=== PATIENT | female | born 1945 | race Caucasian/White ===

== ENCOUNTER 2019-08-04 08:35 | Inpatient (IN) ==
--- NOTE | 2019-06-22 16:32 | PAT Medication Instructions ---
Medication Instructions Date of Service June 22, 2019 Home Medications aspirin [Aspir-81] 81 mg PO DAILY atorvastatin 40 mg PO DAILY famotidine 40 mg PO UD PRN hydrocortisone 1 applic TOPICAL UD PRN lisinopril-hydrochlorothiazide 2 tab PO DAILY warfarin 5 mg PO 6XWK warfarin [Coumadin] 7.5 mg PO WK ASK your prescriber and surgeon warfarin 5 mg PO 6XWK warfarin [Coumadin] 7.5 mg PO WK STOP taking 24 hours before surgery hydrocortisone 1 applic TOPICAL UD PRN DO NOT take the morning of surgery famotidine 40 mg PO UD PRN lisinopril-hydrochlorothiazide 2 tab PO DAILY Take morning of surgery With a small sip of water, OTHERWISE NOTHING TO EAT OR DRINK AFTER MIDNIGHT: aspirin [Aspir-81] 81 mg PO DAILY atorvastatin 40 mg PO DAILY Other Notes If you have any questions please call us at [phone] or [phone] or [phone] or [phone]
--- NOTE | 2019-06-23 11:10 | Anesthesiology Consultation ---
Date of Service June 23, 2019 Assessment & Plan (1) Encounter for pre-operative examination: - Anxious: patient very anxious regarding upcoming surgery/anesthesia. Requesting general anesthesia if possible due to concerns with SAB/possible perioperative awareness. Discussed SAB vs. GA and advised patient that this will be discussed further AM DOS. Also of note, patient had ECHO 06/22/19 noting mild to moderate aortic stenosis (MG 16mmhg, KENA 1.1-1.2mmhg). - Possible difficult intubation due to anatomy* Chart Review Chart Review: Pending: Refer to Additional Notes / Consult section (pending preop testing (labs, CXR)) and Patient seen in Pre Admission Testing Teaching & Discussion Pre-Anesthesia Teaching/Discussion Notes: Instructed NPO after midnight before surgery,except medications with 15 cc of water. Medication instructions provided according to the PAT guidelines. History Surgery Operation Date: 08/04/19 11:25 Proposed Procedures p Left Total Knee Arthroplasty - Pete Polo MD Height/Weight Height: 5 ft 7 in Weight: 95.2 kg Allergies Allergy/AdvReac Type Severity Reaction Status Date / Time acetaminophen [From Percocet] AdvReac Unknown Nausea Verified 06/15/19 14:59 meperidine [From Demerol] AdvReac Unknown Nausea Verified 06/15/19 14:59 morphine AdvReac Unknown Nausea Verified 06/15/19 15:24 oxycodone [From Percocet] AdvReac Unknown Nausea Verified 06/15/19 14:59 Medications Home Medications Medication Instructions Recorded Confirmed Last Taken aspirin [Aspir-81] 81 mg PO DAILY 06/15/19 06/15/19 Unknown atorvastatin 40 mg PO DAILY 06/15/19 06/15/19 Unknown famotidine 40 mg PO UD PRN 06/15/19 06/15/19 Unknown hydrocortisone 1 applic TOPICAL UD PRN 06/15/19 06/15/19 Unknown lisinopril-hydrochlorothiazide 2 tab PO DAILY 06/15/19 06/15/19 Unknown warfarin 5 mg PO 6XWK 06/15/19 06/15/19 Unknown warfarin [Coumadin] 7.5 mg PO WK 06/15/19 06/15/19 Unknown Past Medical History Medical History Acid reflux controlled Anxiety prior to medical procedures* Aortic stenosis mild to moderate (MG 16mmhg, KENA 1.1-1.2mmhg per 06/22/19 ECHO) High blood pressure High cholesterol History of DVT (deep vein thrombosis) LE DVT (1997, 2010)- ? related to premarin for initial DVT/spontaneous recurrent DVT History of cellulitis occasional recurrence/no current issues- advised to contact surgeon/PCP if recurrence prior to surgery History of skin cancer s/p excision Obesity Osteoarthritis Exercise / Class Metabolic Activity III < 4 Walking/Shop/Light housework Past Family History Family History Mother Family history of diabetes mellitus Other Family history of cancer Past Surgical History Surgical History History of carpal tunnel surgery History of cholecystectomy History of colonoscopy History of hysterectomy Past Anesthesia History No Hx of Anesthesia Complications Daughter: post-operative disorientation, confusion, combative (improved with more recent procedures) History of PONV No Hx of PONV and No Hx of Motion Sickness Social History Smoking Status: Never smoker Do You Dip or Chew Tobacco: No Hx Alcohol Use: No Hx Substance Use: No substance use type: does not use Review of Systems Reflux controlled. Patient denies chest pain, shortness of breath, cough, wheezing, palpitations. Physical Exam Vital Signs VITALS BP 124/84 P 75 TEMP 98.0 SP02 95%RA RESP 16 PHYSICAL Full neck and c-spine range of motion. Full TMJ range of motion. TMD 2.5 finger breaths (difficult to palpate) Mallampati Score 4 (small oral opening) Dentition: upper/lower full dentures; edentulous Lungs: clear throughout to auscultation Cardiac: regular rate and rhythm, II/ systolic murmur Spine: normal Carotid arteries: negative bruit Extremities: no edema Testing Laboratory Results 06/07/19 WBC 6.95 H/H 13.1/40.8 PLATELETS 358 SODIUM 144 POTASSIUM 4.4 CHLORIDE 105 CO2 27 BUN 14 CREATININE 0.8 GLUCOSE 108 Electrocardiogram Date: 06/15/19 NSR at [address]. NS ST/TWA. No significant change compared to 12/09/1997 per cardiology. Echocardiogram Date: 06/22/19 EF 65-69% (qualitative). Mild cLVH. Mild senile calcific aortic stenosis with estimated MG 16mmhg, KENA 1.1-1.2mmgh. Grade I DD.
--- NOTE | 2019-06-23 12:11 | XRay Report ---
XR chest Pre-admission PA/Lat CLINICAL HISTORY: Preoperative chest COMPARISON STUDY: No previous studies for comparison. FINDINGS: The cardiac and mediastinal contours are normal. There is no evidence of focal pulmonary co nsolidation. There is no evidence of failure. No pleural effusions are visualized.[ IMPRESSION: No active disease in the chest. Electronically signed by: Laron Morel M.D. 06/23/2019 12:10 PM
[2019-06-23 12:52] LABS: Appearance Urine Clear (Clear); Bacteria Urine Automated Negative (Negative); Bilirubin Urine Negative (Negative); Blood Urine 1+ (Negative); Cast Urine Automated 0 /lpf (0-5); Color Urine Yellow; Glucose Urine UA Negative (Negative); Ketones Urine Negative (Negative); Leukocyte Esterase Urine Trace (Negative); Nitrite Urine Negative (Negative); Protein Urine Negative (Negative); Urobilinogen Urine Negative (Negative)
[2019-06-23 12:55] LABS: INR 2.1 (0.9-1.1); Partial Thromboplastin Ratio 1.1; Partial Thromboplastin Time 31.1 Seconds (21.0-31.0); Prothrombin Time 20.3 Seconds (9.0-12.0)
[2019-06-23 13:11] LABS: Estimated Average Glucose 137 mg/dl; Hemoglobin A1C 6.4 % (4.5-5.6)
--- NOTE | 2019-08-03 20:43 | History and Physical Report ---
DATE OF ADMISSION: 08/04/2019 CHIEF COMPLAINT: Chronic left knee pain and instability. HISTORY OF PRESENT ILLNESS: This is a 74-year-old female patient of Dr. Polo'hai complaining of chronic left knee pain, longstanding, now progressively getting worse. The patient has failed conservative treatment including intra-articular injections, narcotic medications, home exercise program and the use of a sleeve. The patient has increased pain with weightbearing activities and her pain does interfere with her activities of daily living. The patient has been diagnosed with end-stage osteoarthritis in her left knee per clinical and radiographic exams and she wishes to proceed with a left total knee arthroplasty. PAST MEDICAL HISTORY: Heart murmur, hypertension, hypercholesterolemia, history of DVT, acid reflux, obesity, and basal cell skin cancer. SOCIAL HISTORY: Nonsmoker, nondrinker. PAST SURGICAL HISTORY: Hysterectomy and cholecystectomy. FAMILY HISTORY: Noncontributory. REVIEW OF SYSTEMS: Chronic left knee pain and instability. Otherwise, denies any shortness of breath, chest pain, nausea, vomiting or any other joint complaints. MEDICATIONS: 1. Nasacort 55 mcg nasal spray once daily each nostril. 2. Optivar 0.05% eyedrops twice daily to affected eye. 3. Bacitracin 500 units per eye ointment as needed. 4. Lovastatin 40 mg daily. 5. Artificial tears 0.3% eyedrops as needed. 6. Coumadin 5 mg daily. 7. Famotidine 40 mg daily. ALLERGIES: INCLUDE PERCOCET, DEMEROL. PHYSICAL EXAMINATION: GENERAL: Well-developed, well-nourished 74-year-old female in no acute distress. She is alert and oriented x3 and pleasant. HEENT: Normocephalic, atraumatic. Extraocular motions are intact. Pupils are equal and reactive to light. HEART: Regular rate and rhythm, no murmurs. LUNGS: Clear. ABDOMEN: Soft, nontender, bowel sounds present. EXTREMITIES: Left knee reveals a limited range of motion of 0-100 with a neutral alignment. She has medial joint line tenderness, 5/5 strength, crepitation with passive range of motion. NEUROLOGIC: Neurovascularly, she is intact in her left lower extremity. DIAGNOSES: Left knee end-stage osteoarthritis, heart murmur, hypertension, hypercholesterolemia, history of deep venous thrombosis, acid reflux, obesity, history of basal cell skin cancer. PLAN: The patient was advised of her diagnosis. Indications, risks, benefits, postop course have all been reviewed. The patient wished to proceed with a left total knee arthroplasty. Necessary consent forms, preoperative testing and clearances will be obtained.
[~2019-08-04 08:35] MED LIST: ACETAMINOPHEN 500 MG TAB PO SCH; CEFAZOLIN 2000MG 2,000 MG/15 ML SYR IV SCH; CeleBREX 200 MG CAP PO SCH; FAMOTIDINE 20 MG TAB PO SCH; GABAPENTIN 300 MG CAP PO SCH; LR 500ML BOLUS, THEN 15ML/HR IV SCH; METOCLOPRAMIDE HCL 10 MG TABLET PO SCH; ROPIVACAINE 0.5% 5 MG/ML 30 ML VIAL ONE; ROPIVACAINE 0.5% HCL/PF 150 MG, BUPIVACAINE 0.5% MPF 30 ML, EPINEPHrine 30MG/30ML (OR U... INSTIL SCH; dexAMETHasone 4 MG TAB PO SCH
[2019-08-04 09:29] LABS: Partial Thromboplastin Ratio 0.9; Partial Thromboplastin Time 24.8 Seconds (21.0-31.0); Prothrombin Time 10.4 Seconds (9.0-12.0)
[2019-08-04] MEDS ORDERED: fentaNYL citrate 100 MCG/2 ML VIAL ONE (10:14)
[2019-08-04] MEDS ORDERED: PROPOFOL IV EMULSION 10 MG/ML 20 ML VIAL IV ONE ×3 (10:14→14:38)
[2019-08-04] MEDS ORDERED: LIDOCAINE HCL 2% 2 ML VIAL/AMP(20MG/ML) INFIL ONE (10:14)
[2019-08-04] MEDS ORDERED: MIDAZOLAM HCL 1 MG/ML 2ML VIAL ONE ×3 (10:14→11:13)
--- NOTE | 2019-08-04 11:00 | History & Physical Bridge Note ---
Date of Service August 04, 2019 History & Physical Bridge Note I have examined the patient, reviewed the History & Physical and in the interval since the performance of the History & Physical I have noted the following changes of clinical significance: no changes noted
[2019-08-04] MEDS ORDERED: ePHEDrine sulfate 50 MG/ML AMP IV PRN (11:07)
[2019-08-04] MEDS ORDERED: ATROPINE SULFATE 0.1 MG/ML 10ML SYR IV PRN (11:07)
[2019-08-04] MEDS ORDERED: BACITRACIN INJ 50,000 UNIT VIAL ONE (11:21)
[2019-08-04] MEDS ORDERED: ORTHO JOINT ANESTHETIC ONE (11:21)
[2019-08-04] MEDS ORDERED: BUPIVACAINE 0.5 % 5 MG/1 ML PF 10ML VIAL ONE (12:28)
[2019-08-04] MEDS ORDERED: ePHEDrine sulfate 50 MG/ML SYR ONE (13:20)
[2019-08-04] MEDS ORDERED: PHENYLEPHRINE 100MCG/ML 5ML SYR ONE (13:22)
--- NOTE | 2019-08-04 14:26 | Post Operative Brief Note ---
Immediate Post Op Note v1 Date of Surgery August 04, 2019 Pre & Post Diagnosis Operation Date: 08/04/19 11:10 Pre-Op Diagnosis: Left Knee End-State Osteoarthritis Post-Op Diagnosis: Left Knee End-State Osteoarthritis, complex medial meniscus tear I identified the patient and participated in the time-out.: Yes Procedure Operation Date: 08/04/19 11:10 Actual Procedures p Left Total Knee Arthroplasty(Left) - Pete Polo MD Surgeon Pete Polo MD Precision Honer MARIELOS Ervin Estimated Blood Loss 5 Findings Consistent with Post-Op Diagnosis Specimens Bone cuts Drains Hemovac Drain Anesthesia Type MAC Spinal Regional Complications none Disposition Accompanied Patient To Recovery: No Disposition: Recovery Room Overlapping Procedure I was present for: the critical portions of procedure. Back up surgeon: was not required during procedure.
--- NOTE | 2019-08-04 15:33 | Anesthesiology Progress Note ---
Date of Service August 04, 2019 Anesthesia Post Procedure Vital Signs Vital Signs: Temp Pulse Pulse Pulse Resp BP BP 08/04/19 15:30 36.4 C L 08/04/19 15:25 73 16 136/73 08/04/19 15:20 73 20 126/75 08/04/19 15:15 75 21 128/74 08/04/19 15:10 78 21 125/71 08/04/19 15:05 78 20 116/80 08/04/19 15:01 85 27 H 114/68 08/04/19 15:00 81 19 08/04/19 14:55 82 18 124/68 08/04/19 14:52 86 19 08/04/19 14:50 88 18 106/69 08/04/19 14:49 36.5 C 87 84 23 116/61 116/61 08/04/19 11:45 78 18 136/65 08/04/19 09:09 36.8 C 84 22 182/103 H Pulse Ox 08/04/19 15:30 98 08/04/19 15:25 97 08/04/19 15:20 98 08/04/19 15:15 97 08/04/19 15:10 98 08/04/19 15:05 95 08/04/19 15:01 96 08/04/19 15:00 96 08/04/19 14:55 97 08/04/19 14:52 93 08/04/19 14:50 94 08/04/19 14:49 93 08/04/19 11:45 93 08/04/19 09:09 99 Pain Intensity Left Knee: Pain Intensity: 0 Transfer of Care Handoff Completed per policy Notes Mental Status: alert / awake / arousable Patient Amnestic to Procedure: Yes Nausea / Vomiting: adequately controlled Pain: adequately controlled Airway Patency, RR, SpO2: stable & adequate BP & HR: stable & adequate Hydration State: stable & adequate Neuraxial Anesthesia: was administered and sensory block is resolving Anesthetic Complications: no major complications apparent and Pt Satisfied with anesthetic care
[2019-08-04] MEDS ORDERED: MAGNESIUM HYDROXIDE SUSP 30 ML UDC PO PRN (16:01)
[2019-08-04] MEDS ORDERED: bisacodyL 10 MG SUPP PR PRN (16:01)
[2019-08-04] MEDS ORDERED: HYDROmorphone INJ 0.5 MG/0.5 ML SYR IV PRN (16:01)
[2019-08-04] MEDS ORDERED: NALOXONE HCL 0.4 MG/1 ML VIAL/CARP IV PRN (16:01)
[2019-08-04] MEDS ORDERED: HYDROCORTISONE 1% CRM 30 GM TUBE EXT PRN (16:01)
[2019-08-04] MEDS ORDERED: ONDANSETRON INJ 2 MG/ML 2 ML VIAL IV PRN (16:01)
[2019-08-04] MEDS ORDERED: FAMOTIDINE 40 MG TABLET PO PRN (16:01)
[2019-08-04] MEDS ORDERED: TRAMADOL HCL 50 MG TABLET PO PRN (16:01)
[2019-08-04] MEDS ORDERED: OXYCODONE/ACETAMINOPHEN 5mg/325mg TAB PO PRN ×2 (16:18)
--- NOTE | 2019-08-04 16:30 | Operative Report ---
Post Operative Report Pre & Post Diagnosis Operation Date: 08/04/19 11:10 Pre-Op Diagnosis: Left Knee End-State Osteoarthritis Post-Op Diagnosis: Left Knee End-State Osteoarthritis I identified the patient and participated in the time-out.: Yes Procedure Operation Date: 08/04/19 11:10 Actual Procedures p Left Total Knee Arthroplasty(Left) - Pete Polo MD Surgeon Pete Polo MD Barrel Marker MARIELOS Ervin Estimated Blood Loss 5 Findings Consistent with Post-Op Diagnosis Specimens Bone cuts Drains 2 Hemovac Anesthesia Type MAC Spinal Regional Complications none Disposition Accompanied Patient To Recovery: No Disposition: Recovery Room Indications 74 female with significant bilateral knee pain left greater than right with end- stage medial compartment osteoarthritis both knees [id number] varus knees with some tricompartmental osteoarthritic findings. Description of Procedure Patient taken to the operating room placed supine on the operating table and anesthetized under spinal MAC regional anesthesia. Exam under anesthesia demonstrated range of motion -15 with flexion contracture and further flexion 120 degrees with knee effusion and no instability. A pneumatic tourniquet was placed about the thigh of the left lower extremity. The left lower extremity was prepped and draped in usual fashion. Leg was elevated exsanguinated with an Esmarch bandage and the pneumatic was raised to 325 mm mercury. An anterior incision was made across the left knee. The skin was incised longitudinally subcutaneous flaps were elevated and an incision was made through the medial retinaculum extending up into the mid third of the quadriceps tendon and extended down to the medial tibial tubercle. Intra-articular findings demonstrated tricompartment DJD opmo-dc-otip medial compartment complex meniscus tear. The knee was exposed by excising the infrapatellar fat pad, excising the meniscal remnants and cruciate ligaments or remnants of the ligaments. Any inflamed synovial tissue was resected. The fat pad over the anterior femur was resected for placement of the component in that area. The lateral synovial bands were release. Appropriate releases were performed to balance ligaments. The femur was exposed. The custom femoral cutting block was pinned in position. The distal femoral cutting block was applied. The distal femoral cut was made with the oscillating saw. The size 9 4-in-1 cutting block was placed. The anterior and posterior chamfer cuts were made. The knee was extended and a subperiosteal peel lateral release was performed around the patella. The patella width was measured and width was reproduced using freehand cut technique. The 32 x 8 symmetrical millimeter symmetrical patella was used. 3 drill holes are made for the pegs. The tibia was exposed. A custom tibial cutting block was positioned and drill holes were made for the cutting guide. Cutting guide was placed and the proximal cut was made with the oscillating saw. All osteophytes were resected. The lamina soft work wrapper examiner was used to assess ligamentous balance and the ligaments were balanced in extension and flexion. The tibia was reexposed and measured for a size E tibial component. This was externally rotated in line with the tibial tubercle and the fixation pins were drilled. The proximal tibia was fashioned with the drill and punch. The size 9 femoral trial was inserted. The trial MC inserts were used. The 12 mm insert gave balanced ligaments through full range of motion. The patella tracked with subtle liftoff so a limited lateral release was performed leaving the synovium intact and the patella tracked centrally. the trials were removed. The orthomix anesthetic cocktail was injected per protocol. The knee was then copiously irrigated with pulsatile lavage antibiotic solution with bacitracin. The final components were cemented with Simplex cement. The final components were left CR size 9 narrow Bryanna persona femoral component, E tibial component, medial congruent 12 mm polyethylene, 32 x 8.5 mm symmetrical patella. While the cement cured with the knee in full extension the Betadine soak was used per protocol. After the cement cured, the knee joint was copiously irrigated with antibiotic solution with bacitracin. 2 drains were brought out laterally and connected to a Hemovac. The quadriceps tendon and medial retinaculum were closed with interrupted [id number] #1 Vicryl sutures. The knee was taken through a full range of motion and repair was secure. The subcutaneous tissues were closed with 2-0 Vicryl sutures and skin was closed with toshia. Sterile dressings were applied and the patient tolerated the procedure well. Garo ARCEO my physician anatomic pathology assistant, assisted in soft tissue retraction instrument management leg positioning the closure and will participate in the postoperative care of the patient. I attest to the content of the Intraoperative Record and any orders documented therein. Any exceptions are noted below.
--- NOTE | 2019-08-04 16:57 | Consultation ---
Date of Consultation August 04, 2019 Assessment & Plan (1) S/P total knee arthroplasty: Post op day# 0 S/P Left TKA by Dr Polo EBL# 5ml Post op doing well -pain management per ortho -wound management per ortho -PT/OT as appropriate -DVT prophylaxis per ortho -incentive spirometry -monitor H&H for acute blood loss anemia; pre-op Hgb: 13 (2) History of DVT (deep vein thrombosis): H/O DVT x 2. On Chronic Coumadin On Lovenox Bridge prior to surgery INR: 1.0 today -Coumadin to be resumed tonight per surgery -Monitor INR (3) HTN (hypertension): Stable -Continue lisinopril/HCTZ (4) Dyslipidemia: -Continue atorvastatin (5) Prediabetes: A1c: 6.4 on 06/23/19 Pt received Decadron perioperatively -Monitor BSGs -Novolog correction per protocol (6) GERD (gastroesophageal reflux disease): -Continue H2 justen (7) Nocturnal hypoxemia: H/O nocturnal hypoxia noted after cholecystectomy in 2011. Pt denies outpatient sleep study -Monitor O2 sats -Supplemental oxygen prn DVT Prophylaxis -SCDs, Coumadin to be resumed today Disposition per primary service Follows with Dr Contreras - [facility] for routine care Pt was seen and care coordinated with Dr Urbina. See addendum Pt will be followed by Dr Ross starting 08/05/19 Thank you for this consultation. We will follow the patient with you during their hospital stay. You can reach a member of the [facility] 16[facility]03 via pager @ . Supervising Physician Co-Signing Physician Notes Patient is a 74-year-old female with history of hypertension, dyslipidemia, and DVT on chronic anticoagulation and other problems was seen and examined postop after having left total knee arthroplasty by . Patient is doing well postop. She denies any significant pain at the site of incision. Also denies any chest pain, shortness of breath, dizziness, nausea. States having mild soreness of the abdomen from Lovenox shots. Offers no other complaints currently. On exam patient is moderately built and nourished, no apparent distress, normocephalic atraumatic, lungs are clear to auscultation, normal breath sounds, S1-S2,+ murmur, abdomen soft, ecchymosis, normal bowel sounds, grossly no focal neurologic deficits, left knee in surgical dressing, no significant pedal edema. Patient is consulted for postop medical management. Pain control, activity, wound care, DVT prophylaxis per primary team. Monitor for postop anemia. Continue bowel regimen to prevent constipation. Continue Coumadin, monitor INR. I personally reviewed the record. Patient is interviewed and examined at bedside. Patient's care is coordinated with Indiana Mancilla PA-C. Please refer to the documentation above for details of patient's presentation and for discussion of other issues. History of Present Illness Reason for Consultation: Post op medical management Attending Physician: Pete Polo MD History of Present Illness Pt is 74 y/o F with PMH HTN, dyslipidemia, H/O DVT x 2 on chronic Coumadin, mild aortic stenosis, GERD, obesity, h/o nocturnal hypoxemia after surgery in 2011 seen in post op medical consultation s/p L TKA today by Dr Polo. Post op pt reports doing well. Denies N/V. Still with numbness of lower extremities. Denies fever/chills, diaphoresis, HARRISON, dizziness, syncope, vision changes, neck pain, CP, SOB, orthopnea, palpitations, cough, sore throat, choking, otalgia, rhinorrhea, abdominal pain, extremity edema, rashes, urinary symptoms. H/O outpatient echo 05/2019: EF: 65-69%, mild aortic stenosis Allergies Allergy/AdvReac Type Severity Reaction Status Date / Time acetaminophen [From Percocet] AdvReac Unknown Nausea Verified 08/04/19 09:03 meperidine [From Demerol] AdvReac Unknown Nausea Verified 08/04/19 09:03 morphine AdvReac Unknown Nausea Verified 08/04/19 09:03 oxycodone [From Percocet] AdvReac Unknown Nausea Verified 08/04/19 09:03 Home Medications Home Medications Medication Instructions Recorded Confirmed Type aspirin [Aspir-81] 81 mg PO DAILY 06/15/19 08/04/19 History atorvastatin 40 mg PO DAILY 06/15/19 08/04/19 History famotidine 40 mg PO UD PRN 06/15/19 08/04/19 History hydrocortisone 1 applic TOPICAL UD PRN 06/15/19 08/04/19 History lisinopril-hydrochlorothiazide 2 tab PO DAILY 06/15/19 08/04/19 History warfarin 5 mg PO 6XWK 06/15/19 08/04/19 History warfarin [Coumadin] 7.5 mg PO WK 06/15/19 08/04/19 History enoxaparin [Lovenox] 100 mg SUBCUT BID 08/04/19 08/04/19 History Patient History Medical History (Updated 08/04/19 @ 17:02 by Indiana Mancilla PA-C) Anxiety prior to medical procedures* Aortic stenosis mild to moderate (MG 16mmhg, KENA 1.1-1.2mmhg per 06/22/19 ECHO) Dyslipidemia GERD (gastroesophageal reflux disease) History of cellulitis occasional recurrence/no current issues- advised to contact surgeon/PCP if recurrence prior to surgery History of DVT (deep vein thrombosis) LE DVT (1997, 2010)- ? related to premarin for initial DVT/spontaneous recurrent DVT History of skin cancer s/p excision HTN (hypertension) Nocturnal hypoxemia H/O nocturnal hypoxia noted after cholecystectomy in 2011. Obesity Osteoarthritis Prediabetes Surgical History (Updated 08/04/19 @ 17:02 by Indiana Mancilla PA-C) History of carpal tunnel surgery History of cholecystectomy History of colonoscopy History of hysterectomy Family History Mother Family history of diabetes mellitus Other Family history of cancer Social History Preferred Language: Greek Communication Ability: Effective Senior Net C Developer Required: No Beliefs That Will Affect Care: None Current Living Situation: Significant Other Other Information That Helps Us Care for You: No Feels Safe at Home: Yes Smoking Status: Never smoker Do You Dip or Chew Tobacco: No ; Hx Alcohol Use: No Hx Substance Use: No Review of Systems Review of Systems: All systems reviewed & are unremarkable except as noted in HPI & below Physical Exam Physical Exam: General: no distress, obese Head: normocephalic, atraumatic Eyes: conjunctiva non-injected, anicteric ENT: normal inspection external ears, nose, mucous membranes moist Neck: supple, trachea midline Lungs: clear, no respiratory distress, no wheezing/rhonchi/rales CV: RRR, +systolic murmur, no pretibial edema Abd: normal BS, +ecchymosis to bilateral abdomen (Recent lovenox injection sites), soft, non-tender Ext: no calf tenderness; Left knee and leg with JONH bandage in place, +drain in place with serosanguineous drainage, distal pulses palpable, sensation to light touch intact Neuro: A&O x 3, no focal deficits noted, normal affect Skin: warm, dry Results & Data Vital Signs (Past 12 Hours) Vital Signs Temp Pulse Pulse Pulse Resp BP BP 08/04/19 15:55 36.5 C 77 16 128/72 08/04/19 15:40 80 14 08/04/19 15:35 72 15 129/67 08/04/19 15:30 36.4 C L 74 18 123/76 08/04/19 15:25 73 16 136/73 08/04/19 15:20 73 20 126/75 08/04/19 15:15 75 21 128/74 08/04/19 15:10 78 21 125/71 08/04/19 15:05 78 20 116/80 08/04/19 15:01 85 27 H 114/68 08/04/19 15:00 81 19 08/04/19 14:55 82 18 124/68 08/04/19 14:52 86 19 08/04/19 14:50 88 18 106/69 08/04/19 14:49 36.5 C 87 84 23 116/61 116/61 08/04/19 11:45 78 18 136/65 08/04/19 09:09 36.8 C 84 22 182/103 H Pulse Ox 08/04/19 15:55 100 08/04/19 15:40 98 08/04/19 15:35 99 08/04/19 15:30 98 08/04/19 15:25 97 08/04/19 15:20 98 08/04/19 15:15 97 08/04/19 15:10 98 08/04/19 15:05 95 08/04/19 15:01 96 08/04/19 15:00 96 08/04/19 14:55 97 08/04/19 14:52 93 08/04/19 14:50 94 08/04/19 14:49 93 08/04/19 11:45 93 08/04/19 09:09 99
[2019-08-04] MEDS ORDERED: WARFARIN SOD 5 MG TAB PO SCH (17:00)
[2019-08-04] MEDS ORDERED: DEXTROSE 50% 50 ML SYRINGE IV PRN (17:11)
[2019-08-04] MEDS ORDERED: CARBOHYDRATES FOR HYPOGLYCEMIA PO PRN (17:11)
[2019-08-04] MEDS ORDERED: GLUCOSE 40% GEL 15 GM TUBE PO PRN (17:11)
[2019-08-04] MEDS ORDERED: GLUCOSE 10 TABS/TUBE PO PRN (17:11)
[2019-08-04] MEDS ORDERED: GLUCAGON FOR INJ 1 MG VIAL SQ PRN (17:11)
[2019-08-04] MEDS: SODIUM CHLORIDE 0.9% 1000ML 1,000 ML IV SCH (17:17)
[2019-08-04] MEDS ORDERED: WARFARIN SOD 10 MG TAB PO ONE (18:25)
--- NOTE | 2019-08-04 19:08 | XRay Report ---
LEFT KNEE 2 VIEWS History: Left total knee arthroplasty. Degenerative arthritis. Postop. FINDINGS: The patient is status post a left total knee arthroplasty. The hardware is intact. No fract ure or dislocation. Skin toshia and surgical drains are in place. IMPRESSION: Left total knee arthroplasty. No evidence for hardware complication. Electronically signed by: Jake Wiley M.D. 08/04/2019 7:06 PM
[2019-08-04] MEDS: CEFAZOLIN 2000MG 2,000 MG/15 ML SYR IV SCH (19:30)
[2019-08-04] MEDS: DOCUSATE SODIUM 100 MG CAP PO SCH ×2 (20:43→20:45)
[2019-08-04] MEDS: SENNA 8.6 MG TAB PO SCH ×2 (20:43→20:45)
[2019-08-04] MEDS: INSULIN ASPART 100 UNITS/ML 3 ML PEN SC SCH (20:48)
[2019-08-05] MEDS ORDERED: ACETAMINOPHEN 500 MG TAB PO PRN ×2 (02:07→18:43)
[2019-08-05] MEDS ORDERED: ACETAMINOPHEN 500 MG TAB ONE (02:13)
[2019-08-05] MEDS: SODIUM CHLORIDE 0.9% 1000ML 1,000 ML IV SCH (02:15)
[2019-08-05] MEDS: CEFAZOLIN 2000MG 2,000 MG/15 ML SYR IV SCH (04:52)
[2019-08-05 06:29] LABS: Hematocrit (blood only) 31.4 % (37-47); Hemoglobin 10.3 g/dL (12.0-16.0); Mean Corpuscular Hemoglobin 29.2 pg (25-34); Mean Corpuscular Hgb Conc 32.8 g/dL (32-36); Mean Platelet Volume 9.1 fL (7.4-10.4); Platelet Count 327 K/uL (130-400); RDW Coefficient of Variation 14.5 % (11.5-14.5); RDW Standard Deviation 47.3 fL (36.4-46.3); Red Blood Count 3.53 M/uL (4.2-5.4); White Blood Count 12.64 K/uL (4.8-10.8)
[2019-08-05 06:40] LABS: INR 1.1 (0.9-1.1); Prothrombin Time 10.9 Seconds (9.0-12.0)
[2019-08-05 07:02] LABS: BUN Creatinine Ratio 18.8 (10-20); Calcium 8.7 mg/dl (8.5-10.1); Creatinine Clr Calc Pharmacy 82.7 ml/min; Est GFR (Non-African American) 83.7; Potassium 3.5 mmol/L (3.5-5.1)
--- NOTE | 2019-08-05 07:58 | Anesthesiology Progress Note ---
Date of Service August 05, 2019 Anesthesia Post Procedure Vital Signs Vital Signs: Temp Pulse Pulse Pulse Resp BP BP 08/05/19 07:30 36.8 C 78 17 137/80 08/05/19 02:33 36.7 C 67 18 115/71 08/04/19 23:10 36.5 C 73 18 115/67 08/04/19 19:46 36.5 C 86 18 148/76 H 08/04/19 18:57 36.6 C 84 18 132/75 08/04/19 17:52 37.0 C 86 18 125/74 08/04/19 16:50 36.6 C 87 18 138/75 08/04/19 16:20 36.5 C 82 18 132/76 08/04/19 15:55 36.5 C 77 16 128/72 08/04/19 15:40 80 14 08/04/19 15:35 72 15 129/67 08/04/19 15:30 36.4 C L 74 18 123/76 08/04/19 15:25 73 16 136/73 08/04/19 15:20 73 20 126/75 08/04/19 15:15 75 21 128/74 08/04/19 15:10 78 21 125/71 08/04/19 15:05 78 20 116/80 08/04/19 15:01 85 27 H 114/68 08/04/19 15:00 81 19 08/04/19 14:55 82 18 124/68 08/04/19 14:52 86 19 08/04/19 14:50 88 18 106/69 08/04/19 14:49 36.5 C 87 84 23 116/61 116/61 08/04/19 11:45 78 18 136/65 08/04/19 09:09 36.8 C 84 22 182/103 H Pulse Ox 08/05/19 07:30 95 08/05/19 02:33 95 08/04/19 23:10 94 08/04/19 19:46 96 08/04/19 18:57 91 08/04/19 17:52 95 08/04/19 16:50 95 08/04/19 16:20 96 08/04/19 15:55 100 08/04/19 15:40 98 08/04/19 15:35 99 08/04/19 15:30 98 08/04/19 15:25 97 08/04/19 15:20 98 08/04/19 15:15 97 08/04/19 15:10 98 08/04/19 15:05 95 08/04/19 15:01 96 08/04/19 15:00 96 08/04/19 14:55 97 08/04/19 14:52 93 08/04/19 14:50 94 08/04/19 14:49 93 08/04/19 11:45 93 08/04/19 09:09 99 Pain Intensity Left Knee: Pain Intensity: 0 Notes Mental Status: alert / awake / arousable and participated in evaluation Patient Amnestic to Procedure: Yes Nausea / Vomiting: adequately controlled Pain: adequately controlled Airway Patency, RR, SpO2: stable & adequate BP & HR: stable & adequate Hydration State: stable & adequate Neuraxial Anesthesia: was administered and sensory block resolved Anesthetic Complications: no major complications apparent and Pt Satisfied with anesthetic care
[2019-08-05] MEDS ORDERED: HYDROCODONE/ACETAMOPHEN 5/325MG TAB PO PRN (08:25)
--- NOTE | 2019-08-05 08:29 | Orthopedic Progress Note ---
Date of Service August 05, 2019 Assessment & Plan (1) S/P total knee arthroplasty: POD #1, Left TKA PT/ OT DVT proph- Coumadin/ Lovenox per Clinic schedule. D/C planning- [place] As per Medicine. Subjective POD #1, Doing well Denies SOB, CP, N/V. Pain controlled well. Wishes [place] on discharge. Physical Exam Physical Exam: Left knee dressings c/d/i, no drainage. Drain in tact. Toes/ ankle mobile. No Calf tendeness. A&Ox3. Results & Data Vital Signs (Past 12 Hours) Vital Signs Temp Pulse Pulse Resp BP Pulse Ox 08/05/19 07:30 36.8 C 78 17 137/80 95 08/05/19 02:33 36.7 C 67 18 115/71 95 08/04/19 23:10 36.5 C 73 18 115/67 94
[2019-08-05] MEDS: LISINOPRIL/HCTZ 20/12.5MG 1 TAB TAB PO SCH (08:37)
[2019-08-05] MEDS: ASPIRIN 81 MG ECTAB PO SCH (08:38)
[2019-08-05] MEDS: MULTIVITAMIN TAB PO SCH (08:38)
[2019-08-05] MEDS: DOCUSATE SODIUM 100 MG CAP PO SCH ×2 (08:38→21:01)
[2019-08-05] MEDS: ATORVASTATIN 40 MG TAB PO SCH (08:38)
[2019-08-05] MEDS: INSULIN ASPART 100 UNITS/ML 3 ML PEN SC SCH ×4 (08:43→21:28)
--- NOTE | 2019-08-05 09:28 | Hospitalist Progress Note ---
Date of Service August 05, 2019 Assessment & Plan (1) S/P total knee arthroplasty: Post op day# 1 S/P Left TKA by Dr Christ BRIGHT# 5ml; hemovac 600ml tolerated procedure well and doing well post op pain/wound management per ortho Activity and therapy as directed by ortho incentive spirometry monitor H&H for acute blood loss anemia; pre-op Hgb: 13, H&H 10.3 and 31.4 today (2) Postoperative anemia: Preop hemoglobin 13 H&H 10.3 and 31.4 today Monitor closely on a Lovenox/Coumadin bridge (3) History of DVT (deep vein thrombosis): H/O DVT x 2. On Chronic Coumadin On Lovenox Bridge prior to surgery INR: 1.1 today Discussed with Ortho MARIELOS manning to resume a Lovenox bridge and continue warfarin per [facility] pharmacy Recommendations: 08/04/19: Coumadin 10mg 08/05/19: Coumadin 10 mg; Lovenox 100mg SQ at 8p 08/06/19: Coumadin 7.5mg; Lovenox 100mg BID 08/07/19: Coumadin 5mg, Lovenox BID 08/08/19: Resume home dosing of 7.5mg Coumadin on Tuesdays followed by 5mg all other days (4) HTN (hypertension): Blood pressure controlled Continue lisinopril/HCTZ (5) Dyslipidemia: Continue atorvastatin (6) Prediabetes: A1c: 6.4 on 06/23/19 Pt received Decadron perioperatively Monitor BSGs Novolog correction per protocol Blood glucose 129 this morning (7) GERD (gastroesophageal reflux disease): Continue H2 justen Asymptomatic (8) Nocturnal hypoxemia: H/O nocturnal hypoxia noted after cholecystectomy in 2011. Pt denies outpatient sleep study Monitor O2 sats Supplemental oxygen prn DVT Prophylaxis -SCDs, Coumadin/Lovenox bridge Disposition per primary service Follows with Dr Contreras - [facility] for routine care Pt was seen and care coordinated with Dr. Ross. See addendum Thank you for this consultation. We will follow the patient with you during their hospital stay. You can reach a [facility] via pager @ [phone]. 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 Follow-up left TKA POD #1. She offers no acute concerns or complaints. She did discuss her Coumadin dosing per the recommendation of Coumadin clinic along with Lovenox bridge. She is concerned she did not get her Lovenox this morning because, "I do not want to get another blood clot." Overall has decreased appetite but denies nausea. Denies fever, chills, sweats, lightheadedness, dizziness, chest pain, shortness breath, cough, abdominal pain. She is urinating without difficulty. Complains of knee pain 5/10. Review of Systems Review of Systems: All systems reviewed & are unremarkable except as noted in HPI & below Physical Exam Physical Exam: Gen: WD/WN, female, sitting up in bedside chair, NAD, A&O x3 HEENT: Normocephalic, atraumatic, conjunctivae moist, sclerae anicteric, mucous membranes moist. Lung: Clear to Auscultation bilaterally, no wheezes/rales/rhonchi Heart: Regular rate, regular rhythm, 2/6 QUINCY noted precordially, best RUSB, no rubs, or gallops Abdomen: Obese, numerous ecchymoses from previous Lovenox injection soft, NT, ND +BS x 4 Extremities: Left TKA dressing CDI, Hemovac in place, trace LLE edema, teds in place Skin: Warm, no rash, negative turgor. Results & Data Vital Signs (Past 12 Hours) Vital Signs Temp Pulse Pulse Resp BP Pulse Ox 08/05/19 07:30 36.8 C 78 17 137/80 95 08/05/19 02:33 36.7 C 67 18 115/71 95 08/04/19 23:10 36.5 C 73 18 115/67 94 Laboratory Results Short CBC 08/05/19 Range/Units 06:01 WBC 12.64 H (4.8-10.8) K/uL Hgb 10.3 L (12.0-16.0) g/dL Hct 31.4 L (37-47) % Plt Count 327 (130-400) K/uL [facility] 08/05/19 06:01 Sodium 141 Potassium 3.5 Chloride 111 H Carbon Dioxide 25 BUN 14 Creatinine 0.72 Glucose 129 H Calcium 8.7 Medications Administered Aspirin (Ecotrin Ectab) 81 mg PO DAILY PRATEEK Stop: 09/04/19 08:59 Last Admin: 08/05/19 08:38 Dose: 81 mg Documented by: [id number] Atorvastatin Calcium (Lipitor) 40 mg PO DAILY PRATEEK Stop: 09/04/19 08:59 Last Admin: 08/05/19 08:38 Dose: 40 mg Documented by: [id number] Docusate Sodium (Colace) 100 mg PO BID PRATEEK Stop: 09/03/19 20:59 Last Admin: 08/05/19 08:38 Dose: 100 mg Documented by: [id number] Admin: 08/04/19 20:45 Dose: Not Given Documented by: [id number] Lisinopril/HCTZ (Prinzide 20/12.5mg) 2 tab PO DAILY PRATEEK Stop: 09/04/19 08:59 Last Admin: 08/05/19 08:37 Dose: 2 tab Documented by: [id number] Insulin Aspart (Novolog Flexpen) 0 units SC ACHS PRATEEK Stop: 09/03/19 20:59 Last Admin: 08/05/19 08:43 Dose: Not Given Documented by: [id number] Cosigned by: [id number] Admin: 08/04/19 20:48 Dose: Not Given Documented by: [id number] Cosigned by: [id number] Multivitamins (Multivitamin Tab) 1 tab PO QAM PRATEEK Stop: 09/04/19 08:59 Last Admin: 08/05/19 08:38 Dose: 1 tab Documented by: [id number] Sennosides (Senokot) 17.2 mg PO HS PRATEEK Stop: 09/03/19 20:59 Last Admin: 08/04/19 20:45 Dose: Not Given Documented by: [id number] Discontinued Medications Acetaminophen (Tylenol) 1,000 mg PO PREOP PRATEEK Stop: 08/04/19 18:00 Last Admin: 08/04/19 09:34 Dose: 1,000 mg Documented by: [id number] Acetaminophen (Tylenol) Confirm Administered Dose 1,000 mg .ROUTE .STK-MED ONE Stop: 08/05/19 02:14 Last Admin: 08/05/19 02:14 Dose: 1,000 mg Documented by: [id number] Bacitracin (Bacitracin) Confirm Administered Dose 50,000 units .ROUTE .STK-MED ONE Stop: 08/04/19 11:22 Last Admin: 08/04/19 13:34 Dose: 50,000 units Documented by: [id number] Celecoxib (Celebrex) 200 mg PO PREOP PRATEEK Stop: 08/04/19 18:00 Last Admin: 08/04/19 09:25 Dose: 200 mg Documented by: [id number] Dexamethasone (Decadron) 8 mg PO PREOP PRATEEK Stop: 08/04/19 18:00 Last Admin: 08/04/19 09:25 Dose: 8 mg Documented by: [id number] Famotidine (Pepcid) 20 mg PO PREOP PRATEEK Stop: 08/04/19 18:00 Last Admin: 08/04/19 09:25 Dose: 20 mg Documented by: [id number] Gabapentin (Neurontin) 300 mg PO PREOP PRATEEK Stop: 08/04/19 18:00 Last Admin: 08/04/19 09:25 Dose: 300 mg Documented by: [id number] Lactated Ringer's (Lr) 1,000 mls @ 15 mls/hr IV .Q24H PRATEEK Stop: 08/04/19 18:00 Last Infusion: 08/04/19 12:48 Dose: 0 mls/hr Documented by: [id number] Admin: 08/04/19 09:13 Dose: 15 mls/hr Documented by: [id number] Cefazolin Sodium (Ancef 2000mg) 2,000 mg in 15 mls @ 3.75 mls/min IV PREOP PRATEEK; Protocol Stop: 08/04/19 18:00 Last Admin: 08/04/19 12:48 Dose: 3.75 mls/min Documented by: [id number] Ropivacaine 150 mg/Bupivacaine HCl 30 ml/Epinephrine HCl 0.15 mg/Ketorolac Tromethamine 30 mg/Dexamethasone 4 mg/ Ketamine HCl 10 mg/ Clonidine HCl 100 mcg/ Sodium Chloride 93.35 mls @ 0 mls/hr INSTIL PREOP PRATEEK Stop: 08/04/19 06:01 Last Admin: 08/04/19 13:34 Dose: 93.35 mls/hr Documented by: [id number] Cefazolin Sodium (Ancef 2000mg) 2,000 mg in 15 mls @ 3.75 mls/min IV Q8H [facility]; Protocol Stop: 08/05/19 04:03 Last Admin: 08/05/19 04:52 Dose: 3.75 mls/min Documented by: [id number] Admin: 08/04/19 19:30 Dose: 3.75 mls/min Documented by: [id number] Sodium Chloride (Nss 1000ml) 1,000 mls @ 100 mls/hr IV .Q10H [facility] Stop: 08/05/19 06:00 Last Infusion: 08/05/19 05:54 Dose: 0 mls/hr Documented by: [id number] Admin: 08/05/19 02:15 Dose: 100 mls/hr Documented by: [id number] Infusion: 08/05/19 02:15 Dose: 100 mls/hr Documented by: [id number] Admin: 08/04/19 17:17 Dose: 100 mls/hr Documented by: [id number] Metoclopramide HCl (Reglan) 10 mg PO PREOP PRATEEK Stop: 08/04/19 18:00 Last Admin: 08/04/19 09:25 Dose: 10 mg Documented by: [id number] Miscellaneous (Ortho Joint Anesthetic) Confirm Administered Dose 1 ea .ROUTE .STK-MED ONE Stop: 08/04/19 11:22 Last Admin: 08/04/19 13:34 Dose: Not Given Documented by: [id number] Warfarin Sodium (Coumadin) 5 mg PO [email or web address] [facility] Stop: 09/03/19 16:59 Last Admin: 08/04/19 19:26 Dose: Not Given Documented by: [id number] Warfarin Sodium (Coumadin) 10 mg PO NOW ONE Stop: 08/04/19 18:26 Last Admin: 08/04/19 19:20 Dose: 10 mg Documented by: [id number]
[2019-08-05] MEDS ORDERED: WARFARIN SOD 10 MG TAB PO SCH (16:00)
[2019-08-05] MEDS ORDERED: KETOROLAC TROMETHAMINE 15 MG/ML VIAL IV PRN (18:42)
[2019-08-05] MEDS: SENNA 8.6 MG TAB PO SCH (21:01)
[2019-08-05] MEDS: ENOXAPARIN 100 MG/1ML SYR SQ SCH (21:12)
[2019-08-06 06:06] VITALS: BP 149/79; PULSE 81; TEMP 97.7; O2SAT 98
[2019-08-06 06:40] LABS: Hematocrit (blood only) 31.7 % (37-47); Hemoglobin 10.3 g/dL (12.0-16.0); Mean Corpuscular Hemoglobin 29.4 pg (25-34); Mean Corpuscular Hgb Conc 32.5 g/dL (32-36); Mean Corpuscular Volume 90.6 fL (80-100); Mean Platelet Volume 9.2 fL (7.4-10.4); Platelet Count 296 K/uL (130-400); RDW Coefficient of Variation 14.8 % (11.5-14.5); White Blood Count 10.01 K/uL (4.8-10.8)
[2019-08-06 06:48] LABS: INR 1.4 (0.9-1.1)
[2019-08-06] MEDS: INSULIN ASPART 100 UNITS/ML 3 ML PEN SC SCH (07:14)
[2019-08-06 07:19] LABS: Calcium 8.3 mg/dl (8.5-10.1); Creatinine Clr Calc Pharmacy 82.7 ml/min; Est GFR (Non-African American) 83.7; Potassium 3.2 mmol/L (3.5-5.1)
[2019-08-06] MEDS: MULTIVITAMIN TAB PO SCH (07:21)
[2019-08-06] MEDS: DOCUSATE SODIUM 100 MG CAP PO SCH (07:21)
[2019-08-06] MEDS: LISINOPRIL/HCTZ 20/12.5MG 1 TAB TAB PO SCH (07:21)
[2019-08-06] MEDS: ATORVASTATIN 40 MG TAB PO SCH (07:22)
[2019-08-06] MEDS: ASPIRIN 81 MG ECTAB PO SCH (07:22)
[2019-08-06] MEDS: ENOXAPARIN 100 MG/1ML SYR SQ SCH (07:22)
[2019-08-06] MEDS ORDERED: POTASSIUM CHLORIDE 20 MEQ TABCR PO STA (08:37)
--- NOTE | 2019-08-06 08:39 | Orthopedic Progress Note ---
Date of Service August 06, 2019 Assessment & Plan (1) S/P total knee arthroplasty: POD #2, Left TKA PT/ OT DVT proph- Coumadin/ Lovenox per Clinic schedule. D/C planning- Home with [facility] As per Medicine. Subjective Patient is POD#2 left TKA. Pain is controlled, however is very emotional. States she is having a bit of anxiety which she attributes to being in the hospital. No other complaints at this time. Review of Systems Review of Systems: All systems reviewed & are unremarkable except as noted in HPI & below Physical Exam Physical Exam: Patient is resting in bed, she is tearful. Left knee silverlon in place, dressing to old hemovac site. Toes mobile, no calf tenderness. Distally n/v status and sensation intact. Results & Data Vital Signs (Past 12 Hours) Vital Signs Temp Pulse Resp BP Pulse Ox 08/06/19 06:06 36.5 C 81 18 149/79 H 98 08/05/19 22:55 36.7 C 80 16 124/70 95
[2019-08-06] MEDS ORDERED: WARFARIN SOD 7.5 MG TAB PO SCH (16:00)
[2019-08-07] MEDS ORDERED: WARFARIN SOD 5 MG TAB PO SCH (16:00)
[2019-08-09] MEDS ORDERED: WARFARIN SOD 7.5 MG TAB PO SCH (16:00)
--- NOTE | 2019-08-12 11:17 | Coding Query ---
ANEMIA To promote full compliance with coding requirements relating to patient care, physician participation is requested in all cases of cat and dog bather uncertainty. Please assist us with the question(s) below: Coding Question(s): The record reflects the following clinical findings: If these findings are indicative of anemia, please specify the known or suspected type by placing an "X" within the parenthesis (x). If other, please document type. Examples are: ( ) Acute blood loss anemia (X ) Acute Postoperative blood loss anemia ( ) Acute postoperative anemia due to dilutional fluids ( ) Other: (please specify) ( ) Unable to determine Thank you Rosie KOO
--- NOTE | 2019-08-15 20:10 | Discharge Summary ---
HISTORY OF PRESENT ILLNESS: This is a 74-year-old female patient of Dr. Polo's complaining of chronic left knee pain, longstanding, now progressively getting worse. The patient failed conservative treatment and elected to proceed with a left total knee arthroplasty. PAST MEDICAL HISTORY: Heart murmur, hypertension, hypercholesterolemia, history of DVT, acid reflux, obesity and basal cell skin cancer. POSTOPERATIVE COURSE: The patient underwent a left total knee arthroplasty on 08/04/2019. She was followed closely with medical consultation, DVT prophylaxis in the form of Lovenox and Coumadin, physical therapy and pain control. The patient did well postoperatively and was discharged home on postoperative day #2. PHYSICAL EXAMINATION: On discharge, left knee Silverlon dressing was clean, dry and intact. There was no redness or drainage. She had no calf tenderness. Toes and ankle were mobile. Neurologically and neurovascularly, she is intact in her left lower extremity. DIAGNOSES: Status post left total knee arthroplasty, heart murmur, hypertension, hypercholesterolemia, history of deep venous thrombosis, acid reflux, obesity and basal cell skin cancer. PLAN: The patient was discharged home with home health services. She will continue her preadmission medications with the addition of pain medications. She will continue her Lovenox and Coumadin per her Coumadin clinic. She will follow up with Dr. Polo as an outpatient as scheduled.
== END 2019-08-06 10:32 | disposition home health service (06) | DRG 470 ==
LOC: ASU 08:35 → 3E 14:57